=== PATIENT | female | born 1945 | race Caucasian/White ===

== ENCOUNTER 2016-12-07 19:25 | Emergency (ER) | payer OTHER ==
[~2016-12-07] VITALS: Ht 152.4 cm; Wt 58.9 kg
[2016-12-07 19:51] VITALS: BP 104/61; PULSE 75; RESP 16; TEMP 97.4; O2SAT 96
[2016-12-07] MEDS ORDERED: LEVO75TA3 PO (20:59)
[2016-12-07] MEDS ORDERED: POTA10TA2 PO (20:59)
[2016-12-07] MEDS ORDERED: ATOR20TA15 PO (20:59)
[2016-12-07] MEDS ORDERED: CARA1TAB6 PO (20:59)
[2016-12-07] MEDS ORDERED: LISI-519 PO (20:59)
[2016-12-07 21:02] VITALS: BP 110/68; PULSE 78; RESP 18; TEMP 97.4; O2SAT 97
--- NOTE | 2016-12-07 21:55 | PD ---
HPI Chief Complaint: Fall Time Seen by Provider: 20:45 Travel History International Travel<30 days: No Contact w/Intl Traveler<30days: No Traveled to known affect area: No History of Present Illness HPI This 71-year-old woman who presents to the emergency department after trip and fall. She reports she slipped on a wet floor at a fast food restaurant. She fell onto her right side. She thinks she kind of hit with her shoulder in her hip. She has pain in the right wrist, as well as in the right lateral hip, and some generalized pain in her neck and back. She denies hitting her head. No headache. She is not on any blood thinners. She otherwise has been feeling generally well and healthy. History Past Medical History Narrative Medical Hyperlipidemia Hypothyroidism Tetanus Vaccination: Unknown Influenza Vaccination: No Menopausal: Yes Social History Alcohol Use: No Tobacco Use: No Allergies-Medications (Allergen,Severity, Reaction): Coded Allergies: Codeine (Verified Allergy, Severe, Anaphylaxis, 12/07/16) Sulfa (Verified Allergy, Severe, Anaphylaxis, 12/07/16) Penicillin (Verified Allergy, Intermediate, Anaphylaxis, 12/07/16) Reported Meds & Prescriptions Reported Meds & Active Scripts Active Reported Potassium Chloride ER (Potassium Chloride) 10 Meq Tab 10 Meq PO DAILY Atorvastatin (Atorvastatin Calcium) 20 Mg Tab 20 Mg PO HS Carafate (Sucralfate) 1 Gm Tab 1 Gm PO TID On empty stomach Levothyroxine (Levothyroxine Sodium) 75 Mcg Tab 75 Mcg PO DAILY Lisinopril 5 Mg Tab 5 Mg PO DAILY Review of Systems Except as stated in HPI: all other systems reviewed are Neg Physical Exam Narrative GENERAL: Well-appearing 71-year-old, no acute distress. SKIN: Warm and dry. HEAD: Atraumatic. Normocephalic. EYES: Pupils equal and round. No scleral icterus. No injection or drainage. ENT: No nasal bleeding or discharge. Mucous membranes pink and moist. NECK: Trachea midline. No JVD. No midline tenderness. Full range of motion but a little bit of stiffness. CARDIOVASCULAR: Regular rate and rhythm. No murmur appreciated. RESPIRATORY: No accessory muscle use. Clear to auscultation. Breath sounds equal bilaterally. GASTROINTESTINAL: Abdomen soft, non-tender, nondistended. Hepatic and splenic margins not palpable. MUSCULOSKELETAL: No obvious deformities. No midline neck tenderness. A little bit of stiffness of range of motion. No back tenderness bruising step-offs. Again a little bit of generalized pain in the lower lumbar spine. Right shoulder is unremarkable. Right elbow is unremarkable. She some generalized pain in the right wrist, pain of range of motion, worse with moving the thumb, and a little bit of tenderness over the snuffbox. No significant pain with axial loading of the thumb. Right hips unremarkable. Full range of motion. She was able to stand. Otherwise unremarkable exam. NEUROLOGICAL: Awake and alert. No obvious cranial nerve deficits. Motor grossly within normal limits. Normal speech. PSYCHIATRIC: Appropriate mood and affect; insight and judgment normal. Data Data Last Documented VS Vital Signs Date Time Temp Pulse Resp B/P Pulse Ox O2 Delivery O2 Flow Rate FiO2 12/07/16 21:04 18 97 Room Air 12/07/16 21:02 97.4 78 110/68 Orders Wrist, Complete ([id number]) (12/07/16 ) Hip, Uni(Ap&Lat) W Ap Pelvis (12/07/16 ) MDM Medical Decision Making Medical Screen Exam Complete: Yes Emergency Medical Condition: Yes Interpretation(s) My review of right hip x-ray: Negative My review of right wrist x-ray: Negative Differential Diagnosis Contusion, strain or sprain, fracture, other Narrative Course Medical decision making INITIAL: 71 year-old woman with slip and fall. Looks well. Some right side pain. Notably has some tenderness over the anatomic snuffbox on the right with what may have been a fall on an outstretched hand. Conservatively, will splint of x-rays negative. Outpatient follow-up. Diagnosis Primary Impression: Right wrist injury Qualified Code: S69.91XA - Right wrist injury, initial encounter Additional Impression: Fall Qualified Code: W19.XXXA - Fall, initial encounter Additional Instructions: Follow-up with your primary doctor in 7 days for repeat evaluation. Your x-rays did not show any evidence of fracture on my initial read. You need repeat x-rays of your right wrist in 7 days to ensure that there are no occult scaphoid fracture. Keep splint clean and dry. Wear sling when you are walking. Use Tylenol as needed for pain. Return to the emergency department for any new or worsening symptoms. Med/Other Pt SpecificInfo: Prescription(s) given Disposition: 01 DISCHARGE HOME Condition: Stable Edil Kennedy MD Dec 07, 2016 21:54
--- NOTE | 2016-12-07 22:27 | RADHPO ---
EXAM DATE/TIME: 12/07/2016 21:28 [facility] COMPARISON: No previous studies available for comparison. INDICATIONS : Patient states right hip pain after fall today. MEDICAL HISTORY : None. SURGICAL HISTORY : None. ENCOUNTER: Initial ACUITY: 1 day PAIN SCORE: 6/10 LOCATION: Right Hip FINDINGS: Examination of the right hip was performed with AP Pelvis. The primary and secondary trabecular aubrey jona of the femoral neck is intact. The hip joint is of normal width without significant sclerosis or bony hypertrophy. The acetabulum is grossly intact. CONCLUSION: Intact pelvis and right hip. Hilario Coto MD on December 07, 2016 at 22:25 Board Certified Radiologist. This report was verified electronically.
--- NOTE | 2016-12-07 22:32 | RADHPO ---
EXAM DATE/TIME: 12/07/2016 21:32 [facility] COMPARISON: No previous studies available for comparison. INDICATIONS : Patient states right wrist pain after fall today. MEDICAL HISTORY : None. SURGICAL HISTORY : None. ENCOUNTER: Initial ACUITY: 1 day PAIN SCORE: 6/10 LOCATION: Right Wrist FINDINGS: Three view examination of the right wrist demonstrates no soft tissue swelling, dislocation, or fract ure. The carpal bones are in normal alignment. The joint spaces are maintained. Bony mineralizatio n is normal. CONCLUSION: No evidence of fracture or subluxation of the right wrist. Hilario Coto MD on December 07, 2016 at 22:30 Board Certified Radiologist. This report was verified electronically.
[2016-12-07 22:44] VITALS: BP 110/66; PULSE 78; RESP 18; O2SAT 97
== END 2016-12-07 22:47 | disposition home or self-care (01) ==
LOC: PHED 19:25
DX: S69.91XA Unspecified injury of right wrist, hand and finger(s), initial encounter (principal); M25.551 Pain in right hip; M54.2 Cervicalgia; M54.9 Dorsalgia, unspecified; E78.5 Hyperlipidemia, unspecified; E03.9 Hypothyroidism, unspecified; W01.0XXA Fall on same level from slipping, tripping and stumbling without subsequent striking against object, initial encounter; Y92.511 Restaurant or cafe as the place of occurrence of the external cause; Y99.8 Other external cause status
CPT/HCPCS: 73110; 73502; 99284; L3808

== ENCOUNTER 2017-07-21 19:15 | Emergency (ER) | payer OTHER ==
[~2017-07-21] VITALS: Ht 152.4 cm; Wt 62.4 kg
[~2017-07-21 19:15] MED LIST: ATOR20TA15 PO; CARA1TAB6 PO; LEVO75TA3 PO; LISI-519 PO; POTA10TA2 PO
[2017-07-21 19:19] VITALS: BP 126/82; PULSE 83; RESP 18; TEMP 98.6; O2SAT 96
--- NOTE | 2017-07-21 19:52 | PD ---
HPI Chief Complaint: Fall Time Seen by Provider: 19:32 Travel History International Travel<30 days: No Contact w/Intl Traveler<30days: No Traveled to known affect area: No History of Present Illness HPI 72-year-old female presents to the emergency department complaining of right elbow, bilateral knee, and left ring finger pain after fall that occurred just prior to arrival. States that she tripped and fell over a purse in her room landing on her elbow and knees. She caught her fall with her finger as well. Her finger is painful with movement, described as mild. Denies head trauma, LOC , dizziness, vision, chest pain, shows breath, neck pain, back pain. States that she was able to ambulate after the incident however is having pain in her knees. Right elbow pain with movement and palpation, described as mild. States that she takes medications regularly for her thyroid and kidneys. She is not on blood thinners. PFSH Past Medical History Diminished Hearing: No Menopausal: Yes Social History Alcohol Use: No Tobacco Use: No Substance Use: No Allergies-Medications (Allergen,Severity, Reaction): Coded Allergies: Sulfa (Sulfonamide Antibiotics) (Unverified Allergy, Severe, Anaphylaxis, 07/21/17) codeine (Unverified Allergy, Severe, Anaphylaxis, 07/21/17) penicillin G (Unverified Allergy, Intermediate, Anaphylaxis, 07/21/17) Reported Meds & Prescriptions Reported Meds & Active Scripts Active Reported Potassium Chloride ER (Potassium Chloride) 10 Meq Tab 10 Meq PO DAILY Atorvastatin (Atorvastatin Calcium) 20 Mg Tab 20 Mg PO HS Carafate (Sucralfate) 1 Gm Tab 1 Gm PO TID On empty stomach Levothyroxine (Levothyroxine Sodium) 75 Mcg Tab 75 Mcg PO DAILY Lisinopril 5 Mg Tab 5 Mg PO DAILY Review of Systems Except as stated in HPI: all other systems reviewed are Neg Physical Exam Narrative GENERAL: Well-developed well-nourished SKIN: Focused skin assessment warm/dry. HEAD: Atraumatic. Normocephalic. EYES: Pupils equal and round. No scleral icterus. No injection or drainage. NECK: Trachea midline. No JVD. No tenderness palpation CARDIOVASCULAR: Regular rate and rhythm. No murmur appreciated. RESPIRATORY: No accessory muscle use. Clear to auscultation. Breath sounds equal bilaterally. GASTROINTESTINAL: Abdomen soft, non-tender, nondistended. Hepatic and splenic margins not palpable. MUSCULOSKELETAL: No obvious deformities. No clubbing. No cyanosis. No edema. Right elbow- tenderness to palpation of the olecranon process. Full range of motion. No ecchymosis or edema Bilateral knees- slight abrasion to the left anterior knee. Both knees full range of motion without crepitus or pain. No ecchymosis or edema. Left ring finger: Marked edema with ecchymosis over the PIP. Full range of motion without crepitus. NEUROLOGICAL: Awake and alert. No obvious cranial nerve deficits. Motor grossly within normal limits. Normal speech. PSYCHIATRIC: Appropriate mood and affect; insight and judgment normal. Data Data Last Documented VS Vital Signs Date Time Temp Pulse Resp B/P (MAP) Pulse Ox O2 Delivery O2 Flow Rate FiO2 07/21/17 19:19 98.6 83 18 126/82 (97) 96 Orders Orders Elbow, Limited (Ap&Lat) (07/21/17 ) Knee, Ltd (1 Or 2vws) (07/21/17 ) Knee, Ltd (1 Or 2vws) (07/21/17 ) Finger ([id number]) (07/21/17 ) Splint Or Brace Apply/Monitor (07/21/17 21:07) Ed Discharge Order (07/21/17 22:05) Finger Splint (07/21/17 ) MDM Medical Decision Making Medical Screen Exam Complete: Yes Emergency Medical Condition: Yes Differential Diagnosis Left elbow sprain versus strain versus contusion Left knee sprain versus strain versus contusion Right knee sprain versus strain versus contusion Left ring finger sprain versus contusion versus fracture Narrative Course 72-year-old female presents to the emergency department status post mechanical fall landing on her knees right elbow and left ring finger. States her left ring finger is the more painful of the injuries but does have full range of motion. Physical exam was significant for mild tenderness to palpation of the right elbow olecranon process, bilateral knee inferior portion of patella tenderness to palpation, with full range of motion. Left ring finger PIP with ecchymosis and full range of motion without crepitus. Neurovascularly intact Imaging studies For an avulsion fracture of the middle phalanx of left fourth finger. Patient placed in finger splint and advised to follow-up with a hand specialist within a couple days. Advised patient follow up with her primary care physician for further evaluation. Diagnosis Primary Impression: Knee contusion Qualified Codes: S80.01XA - Contusion of right knee, initial encounter Additional Impressions: Elbow contusion Qualified Codes: S50.01XA - Contusion of right elbow, initial encounter Avulsion fracture of middle phalanx of finger Qualified Codes: S62.629A - Displaced fracture of medial phalanx of unspecified finger, initial encounter for closed fracture Referrals: Primary Care Physician Additional Instructions: Follow up with primary care physician this week. Follow-up with your hand surgeon within 1 week. Use splint for comfort care. May use [id number] Tylenol or Motrin for pain. Disposition: 01 DISCHARGE HOME Condition: Stable Madeleine Escalante Jul 21, 2017 19:52
--- NOTE | 2017-07-21 21:09 | RADRPT ---
EXAM DATE/TIME: 07/21/2017 20:23 [facility] COMPARISON: No previous studies available for comparison. INDICATIONS : Right knee pain. MEDICAL HISTORY : None. SURGICAL HISTORY : None. ENCOUNTER: Initial ACUITY: 1 day PAIN SCORE: 4/10 LOCATION: Right knee FINDINGS: Two view examination of the right knee demonstrates no evidence of fracture or dislocation. Bony min eralization is normal. The suprapatellar soft tissues have a normal configuration. CONCLUSION: Normal examination for a patient of this age. Mg Lutz MD on July 21, 2017 at 21:08 Board Certified Radiologist. This report was verified electronically.
--- NOTE | 2017-07-21 21:09 | RADRPT ---
EXAM DATE/TIME: 07/21/2017 20:23 [facility] COMPARISON: No previous studies available for comparison. INDICATIONS : Right elbow pain. MEDICAL HISTORY : None. SURGICAL HISTORY : None. ENCOUNTER: Initial ACUITY: 1 day PAIN SCORE: 2/10 LOCATION: Right elbow FINDINGS: Two view examination of the right elbow demonstrates no soft tissue swelling, joint effusion, fractur e or dislocation. Bony mineralization is normal. CONCLUSION: Normal examination for a patient of this age. Mg Lutz MD on July 21, 2017 at 21:07 Board Certified Radiologist. This report was verified electronically.
--- NOTE | 2017-07-21 21:09 | RADRPT ---
EXAM DATE/TIME: 07/21/2017 20:23 [facility] COMPARISON: No previous studies available for comparison. INDICATIONS : Left knee pain. MEDICAL HISTORY : None. SURGICAL HISTORY : None. ENCOUNTER: Initial ACUITY: 1 day PAIN SCORE: 4/10 LOCATION: Left knee FINDINGS: Two view examination of the left knee demonstrates no evidence of fracture or dislocation. Bony mine ralization is normal. The suprapatellar soft tissues have a normal configuration. CONCLUSION: Normal examination for a patient of this age. Mg Lutz MD on July 21, 2017 at 21:08 Board Certified Radiologist. This report was verified electronically.
--- NOTE | 2017-07-21 21:42 | RADRPT ---
EXAM DATE/TIME: 07/21/2017 20:23 [facility] COMPARISON: No previous studies available for comparison. INDICATIONS : Left fourth digit pain. MEDICAL HISTORY : None. SURGICAL HISTORY : None. ENCOUNTER: Initial ACUITY: 1 day PAIN SCORE: 7/10 LOCATION: Left hand, 4th digit FINDINGS: There is soft tissue swelling around proximal interphalangeal joint with an avulsion fracture of the proximal portion middle phalanx extending intra-articularly. No dislocation. CONCLUSION: Avulsion fracture middle phalanx left fourth finger Mg Lutz MD on July 21, 2017 at 21:39 Board Certified Radiologist. This report was verified electronically.
== END 2017-07-21 22:20 | disposition home or self-care (01) ==
LOC: PHEFT 19:15
DX: S62.625A Displaced fracture of middle phalanx of left ring finger, initial encounter for closed fracture (principal); S80.01XA Contusion of right knee, initial encounter; S50.01XA Contusion of right elbow, initial encounter; W01.0XXA Fall on same level from slipping, tripping and stumbling without subsequent striking against object, initial encounter
CPT/HCPCS: 29130; 73070; 73140; 73560